=== PATIENT | male | born 1990 | race African-American/Black ===

== ENCOUNTER 2021-05-18 16:39 | Emergency (ER) | payer MEDICARE, OTHER ==
[~2021-05-18] VITALS: Ht 177.8 cm; Wt 133.8 kg
[2021-05-18 17:38] LABS: HEMATOCRIT 46.1 % (36.7-47.1); MEAN CORPUSCULAR HEMOGLOBIN 29.6 uug (23.8-33.4); MEAN CORPUSCULAR VOLUME 87.4 fL (73.0-96.2); PLATELET COUNT (AUTO) 205 K/uL (152-348)
[2021-05-18 17:49] LABS: CARBON DIOXIDE 26 mmol/L (21-32); CHLORIDE 101 mmol/L (98-107); CREATININE 1.3 mg/dL (0.6-1.3); GLUCOSE 82 mg/dL (74-106); POTASSIUM 3.7 mmol/L (3.5-5.1); UREA NITROGEN, BLOOD 13 mg/dL (7-18)
[2021-05-18 17:54] LABS: ACETAMINOPHEN < 2.0 ug/mL (10-30); ALANINE AMINOTRANSFERASE 49 U/L (16-63); ALKALINE PHOSPHATASE 69 U/L (50-136); ASPARTATE AMINOTRANSFERASE 23 U/L (15-37); BILIRUBIN,DIRECT 0.2 mg/dL (0.0-0.2); BILIRUBIN,TOTAL 1.1 mg/dL (0.2-1.0); ETHANOL < 3 MG/DL (0-0); TOTAL PROTEIN, SERUM 7.3 g/dL (6.4-8.2)
[2021-05-18] MEDS ORDERED: OLANZAPINE 5 MG TABLET PO ONE (18:15)
[2021-05-18] MEDS ORDERED: OLANZAPINE 5 MG TABLET ONE (18:26)
--- NOTE | 2021-05-18 18:42 | NUR ---
Pt states he's having visual and auditory hallucinations, denies SI and HI. Pt denies CP, SOB, Dizziness, n/v, no physical complaints, no distress noted.
[2021-05-18 19:19] LABS: *BLOOD, URINE NEGATIVE (NEGATIVE); *CLARITY,URINE CLEAR (CLEAR); *COLOR,URINE YELLOW (YELLOW); *KETONES,URINE 4+ (NEGATIVE); *UROBILINOGEN,URINE 0.2 E.U./dl (NORMAL); LEUKOCYTE ESTERASE ,URINE NEGATIVE (NEGATIVE); NITRITE, URINE NEGATIVE (NEGATIVE); UGLUCOSE NEGATIVE (NEGATIVE)
--- NOTE | 2021-05-18 19:22 | NUR ---
Assumed care of patient from day shift nurse Jorge. Patient AAOx4. Denies any SI. Denies any auditory or visual halucintaion at this time. Appears calm and comfortable.
[2021-05-18 19:25] LABS: *BILIRUBIN,URIN 1+ (NEGATIVE)
[2021-05-18 19:28] LABS: BACTERIA,URINE NONE SEEN /HPF (NONE SEEN); MUCUS,URINE MODERATE /LPF (0-FEW); RBC,URINE 0-3 /HPF (0-3); SQUAMOUS EPITHELIAL CELL,UR FEW /HPF (NONE SEEN); URINE AMORPHOUS URATE FEW /HPF
[2021-05-18 19:35] LABS: *AMPHETAMINE, URINE NEGATIVE (NEGATIVE); *CANNABINOID, URINE NEGATIVE (NEGATIVE); *COCCAINE, URINE NEGATIVE (NEGATIVE); *OPIATE, URINE NEGATIVE (NEGATIVE); *PHENCYCLIDINE SCREEN,URINE NEGATIVE (NEGATIVE)
--- NOTE | 2021-05-18 19:50 | NUR ---
Telephone call to Crisis team/Cathryn to evaluate patient.
--- NOTE | 2021-05-18 20:32 | NUR ---
Crisis team/Pilyy at bedside for eval.
[2021-05-18 21:03] VITALS: BP 120/82
--- NOTE | 2021-05-18 21:03 | NUR ---
Patient discharged to home in stable condition. Written and verbal after care instructions given. Patient verbalizes understanding of instructions. Stressed follow up or return to ER for worsening s/s. All belongings with patient.
== END 2021-05-18 20:58 | disposition home or self-care (01) ==
LOC: ER 16:48
DX: R44.1 Visual hallucinations (principal); R44.0 Auditory hallucinations; Z20.822 Contact with and (suspected) exposure to COVID-19
CPT/HCPCS: 36415; 85025; 87086; A4663; G0480

== ENCOUNTER 2021-06-19 18:56 | Emergency (ER) | payer MEDICARE, OTHER ==
[~2021-06-19] VITALS: Ht 177.8 cm; Wt 133.8 kg
--- NOTE | 2021-06-19 19:19 | NUR ---
Pt brought back to ED2B at 1915 by sales stock associate Adrian. At pt bedside to introduce myself and assess pt condition. Pt AAOx4 with good color, temp and appearance, well nurished and well groomed individual. CC of auditory hallucination with past hx of same issue last month in may. Denies SI or desire to harm self/others. States he simply ran out of his meds. No other health issue. VSS, PE WNL. Lungs clear, oxygenating and perfusing well. denies any pain, nausea or discomfort. No s/sx of distress present. Resting comfortably on gurney awaiting EDMD for eval.
[2021-06-19] MEDS ORDERED: OLANZAPINE 5 MG TABLET PO ONE (19:45)
[2021-06-19 19:57] LABS: HEMATOCRIT 48.4 % (36.7-47.1); MEAN CORPUSCULAR HEMOGLOBIN 30.2 uug (23.8-33.4); MEAN CORPUSCULAR VOLUME 88.4 fL (73.0-96.2); PLATELET COUNT (AUTO) 208 K/uL (152-348)
[2021-06-19 20:01] LABS: CARBON DIOXIDE 30 mmol/L (21-32); CHLORIDE 101 mmol/L (98-107); CREATININE 1.2 mg/dL (0.6-1.3); GLUCOSE 109 mg/dL (74-106); POTASSIUM 4.2 mmol/L (3.5-5.1); UREA NITROGEN, BLOOD 11 mg/dL (7-18)
[2021-06-19 20:03] LABS: *BILIRUBIN,URIN NEGATIVE (NEGATIVE); *BLOOD, URINE NEGATIVE (NEGATIVE); *CLARITY,URINE CLEAR (CLEAR); *COLOR,URINE YELLOW (YELLOW); *KETONES,URINE NEGATIVE (NEGATIVE); *UROBILINOGEN,URINE 0.2 E.U./dl (NORMAL); LEUKOCYTE ESTERASE ,URINE NEGATIVE (NEGATIVE); NITRITE, URINE NEGATIVE (NEGATIVE); PH,URINE 6.5 (5.0-8.0); UGLUCOSE NEGATIVE (NEGATIVE)
[2021-06-19] MEDS ORDERED: OLANZAPINE 5 MG TABLET ONE (20:05)
[2021-06-19 20:06] LABS: ETHANOL < 3 MG/DL (0-0)
[2021-06-19 20:07] LABS: ACETAMINOPHEN < 2.0 ug/mL (10-30); ALANINE AMINOTRANSFERASE 50 U/L (16-63); ALKALINE PHOSPHATASE 88 U/L (50-136); ASPARTATE AMINOTRANSFERASE 20 U/L (15-37); BILIRUBIN,DIRECT 0.1 mg/dL (0.0-0.2); BILIRUBIN,TOTAL 0.7 mg/dL (0.2-1.0); TOTAL PROTEIN, SERUM 7.9 g/dL (6.4-8.2)
[2021-06-19 20:12] LABS: *AMPHETAMINE, URINE NEGATIVE (NEGATIVE); *CANNABINOID, URINE NEGATIVE (NEGATIVE); *COCCAINE, URINE NEGATIVE (NEGATIVE); *OPIATE, URINE NEGATIVE (NEGATIVE); *PHENCYCLIDINE SCREEN,URINE NEGATIVE (NEGATIVE)
--- NOTE | 2021-06-20 00:35 | NUR ---
Art from [facility] intake called back with transfer info. Patient will be going to [facility], Accepting MD is Dr Kevin. Call for report is . Per Art [facility] is unable to accept patient until after 1100 AM this afternoon due to staffing issue.
[2021-06-20] MEDS ORDERED: OLAN5TAB3 PO (01:51)
--- NOTE | 2021-06-20 02:06 | NUR ---
Called [facility] ambulance for schedule pick at 1030 am, for patient to be transfered at [facility].
--- NOTE | 2021-06-20 05:00 | NUR ---
Pt is sleeping soundly with audible snoring. VSS, PE WNL. LUngs clear, oxygenating and perfusing well. denies any pain or nausea. No s/sx of distress present.
--- NOTE | 2021-06-20 08:20 | NUR ---
Pt DCed home per pt request. Pt states that he feels much better and that there is no need to be admitted to a facility, since he has an appt with his Psych MD this saturday to have his meds dialed in better. Pt states that he will just go see his Psych MD at his office. Pt given DC instructions and prescribtion drug info. Pt confirmed understanding of aftercare instructions. Pt is otherwise completely healthy with no other health issues. no s/sx of distress present. VSS, PE WNL
[2021-06-20 08:36] VITALS: BP 126/83
== END 2021-06-20 08:20 | disposition home or self-care (01) ==
LOC: ER 18:58
DX: F29 Unspecified psychosis not due to a substance or known physiological condition (principal); R03.0 Elevated blood-pressure reading, without diagnosis of hypertension; Z20.822 Contact with and (suspected) exposure to COVID-19; Z53.29 Procedure and treatment not carried out because of patient's decision for other reasons
CPT/HCPCS: 36415; 85025; A4663; G0480

== ENCOUNTER 2021-07-26 14:10 | Emergency (ER) | payer MEDICARE, OTHER ==
[~2021-07-26] VITALS: Ht 177.8 cm; Wt 127.0 kg
[~2021-07-26 14:10] MED LIST: OLAN5TAB3 PO
[2021-07-26] MEDS ORDERED: PALI234D IM (14:22)
[2021-07-26] MEDS ORDERED: OLANZAPINE 5 MG TABLET PO STA (14:25)
[2021-07-26] MEDS ORDERED: OLANZAPINE 5 MG TABLET ONE (15:02)
[2021-07-26 15:07] LABS: HEMATOCRIT 48.3 % (36.7-47.1); MEAN CORPUSCULAR HEMOGLOBIN 30.2 uug (23.8-33.4); MEAN CORPUSCULAR VOLUME 87.4 fL (73.0-96.2); PLATELET COUNT (AUTO) 198 K/uL (152-348)
[2021-07-26 15:16] LABS: CARBON DIOXIDE 28 mmol/L (21-32); CHLORIDE 102 mmol/L (98-107); CREATININE 1.4 mg/dL (0.6-1.3); GLUCOSE 97 mg/dL (74-106); POTASSIUM 4.2 mmol/L (3.5-5.1); UREA NITROGEN, BLOOD 10 mg/dL (7-18)
[2021-07-26 15:21] LABS: ETHANOL < 3 MG/DL (0-0)
[2021-07-26 15:25] LABS: *BILIRUBIN,URIN 1+ (NEGATIVE); *CLARITY,URINE CLEAR (CLEAR); *COLOR,URINE YELLOW (YELLOW); *KETONES,URINE 3+ (NEGATIVE); *UROBILINOGEN,URINE 0.2 E.U./dl (NORMAL); LEUKOCYTE ESTERASE ,URINE NEGATIVE (NEGATIVE); NITRITE, URINE NEGATIVE (NEGATIVE); UGLUCOSE NEGATIVE (NEGATIVE)
[2021-07-26 15:29] LABS: *BLOOD, URINE TRACE (NEGATIVE)
[2021-07-26 15:30] LABS: BACTERIA,URINE NONE SEEN /HPF (NONE SEEN); RBC,URINE 0-3 /HPF (0-3); WBC,URINE 0-3 /HPF (0-3)
[2021-07-26 15:33] LABS: ALANINE AMINOTRANSFERASE 46 U/L (16-63); ALKALINE PHOSPHATASE 78 U/L (50-136); ASPARTATE AMINOTRANSFERASE 19 U/L (15-37); BILIRUBIN,DIRECT 0.2 mg/dL (0.0-0.2); BILIRUBIN,TOTAL 0.9 mg/dL (0.2-1.0); TOTAL PROTEIN, SERUM 7.7 g/dL (6.4-8.2)
--- NOTE | 2021-07-26 15:38 | NUR ---
Clinical Social Work Note GREYSON met with patient to discuss voluntary placement at [facility]. Patient is a 30 year old male who is alert and oriented x4. Patient presents with a depressed mood and flat affect. Patient was able to express to SW that he came to the ED because he was having derogatory auditory hallucinations. Patient denied voices telling him to hurt himself or others. Patient denied visual hallucinations. Patient denied suicidal or homicidal ideation. Patient stated that he would like to voluntary go to [facility] to continue treatment. GREYSON informed MIREILLE Cisneros who stated that patients clinicals were not ready. Blayne stated that as soon as patients clinicals were available he would fax ([phone]) them over to Luis at [facility].
[2021-07-26 15:39] LABS: ACETAMINOPHEN < 2.0 ug/mL (10-30)
[2021-07-26 15:41] LABS: *AMPHETAMINE, URINE NEGATIVE (NEGATIVE); *CANNABINOID, URINE NEGATIVE (NEGATIVE); *COCCAINE, URINE NEGATIVE (NEGATIVE); *OPIATE, URINE NEGATIVE (NEGATIVE); *PHENCYCLIDINE SCREEN,URINE NEGATIVE (NEGATIVE)
--- NOTE | 2021-07-26 16:20 | NUR ---
Patient discharged to home in stable condition. Written and verbal after care instructions given. Patient verbalizes understanding of instructions. Stressed follow up or return to ER for worsening s/s.
[2021-07-26] MEDS ORDERED: OLAN15TA3 PO (16:24)
[2021-07-26 16:47] VITALS: BP 138/82
== END 2021-07-26 16:25 | disposition home or self-care (01) ==
LOC: ER 14:10
DX: F20.9 Schizophrenia, unspecified (principal); E66.01 Morbid (severe) obesity due to excess calories; Z68.41 Body mass index [BMI] 40.0-44.9, adult; R82.4 Acetonuria
CPT/HCPCS: 36415; 85025; A4663; G0480

== ENCOUNTER 2021-08-07 14:05 | Emergency (ER) | payer MEDICARE, OTHER ==
[~2021-08-07] VITALS: Ht 177.8 cm; Wt 121.6 kg
[~2021-08-07 14:05] MED LIST changes: +OLAN15TA3 PO; +PALI234D IM
[2021-08-07] MEDS ORDERED: OLAN5TAB3 PO (15:15)
--- NOTE | 2021-08-07 15:24 | NUR ---
Patient discharged to home in stable condition. Written and verbal after care instructions given. Patient verbalizes understanding of instructions. Stressed follow up or return to ER for worsening s/s.PT WALKS IN STEADY GAIT.
== END 2021-08-07 15:25 | disposition home or self-care (01) ==
LOC: ER 14:05
DX: F29 Unspecified psychosis not due to a substance or known physiological condition (principal); Z79.899 Other long term (current) drug therapy; R03.0 Elevated blood-pressure reading, without diagnosis of hypertension
CPT/HCPCS: A4663

== ENCOUNTER 2021-08-11 16:45 | Emergency (ER) | payer MEDICARE, OTHER ==
[~2021-08-11] VITALS: Ht 177.8 cm; Wt 120.2 kg
[2021-08-11] MEDS ORDERED: OLANZAPINE 5 MG TABLET PO ONE (17:45)
[2021-08-11] MEDS ORDERED: OLANZAPINE 5 MG TABLET ONE (18:07)
[2021-08-11] MEDS ORDERED: OLAN10TA3 PO (18:29)
== END 2021-08-11 18:39 | disposition home or self-care (01) ==
LOC: ER 16:45
DX: R44.0 Auditory hallucinations (principal)
CPT/HCPCS: A4663

== ENCOUNTER 2021-08-16 14:45 | Emergency (ER) | payer MEDICARE, OTHER ==
[~2021-08-16] VITALS: Ht 177.8 cm; Wt 122.5 kg
[~2021-08-16 14:45] MED LIST changes: +OLAN10TA3 PO
[2021-08-16] MEDS: diphenhydrAMINE 50 MG CAPSULE PO ONE (15:09)
[2021-08-16] MEDS ORDERED: diphenhydrAMINE 50 MG CAPSULE ONE (15:16)
--- NOTE | 2021-08-16 15:43 | NUR ---
PATIENT WAS SEEN BY MD. MED GIVEN ORDERED. PATIENT TOLD DR ALFONSO THAT HE WANTS TO BE ADMITTED FOR PSYCHIATRIC ISSUES AND "HEARING VOICES"
[2021-08-16 15:58] LABS: *BILIRUBIN,URIN NEGATIVE (NEGATIVE); *BLOOD, URINE NEGATIVE (NEGATIVE); *CLARITY,URINE CLEAR (CLEAR); *COLOR,URINE YELLOW (YELLOW); *KETONES,URINE NEGATIVE (NEGATIVE); *UROBILINOGEN,URINE 0.2 E.U./dl (NORMAL); LEUKOCYTE ESTERASE ,URINE NEGATIVE (NEGATIVE); NITRITE, URINE NEGATIVE (NEGATIVE); UGLUCOSE NEGATIVE (NEGATIVE)
[2021-08-16 16:09] LABS: *AMPHETAMINE, URINE NEGATIVE (NEGATIVE); *CANNABINOID, URINE NEGATIVE (NEGATIVE); *COCCAINE, URINE NEGATIVE (NEGATIVE); *OPIATE, URINE NEGATIVE (NEGATIVE); *PHENCYCLIDINE SCREEN,URINE NEGATIVE (NEGATIVE)
[2021-08-16 16:57] LABS: HEMATOCRIT 47.1 % (36.7-47.1); MEAN CORPUSCULAR HEMOGLOBIN 29.9 uug (23.8-33.4); MEAN CORPUSCULAR VOLUME 87.6 fL (73.0-96.2); PLATELET COUNT (AUTO) 198 K/uL (152-348)
[2021-08-16 17:05] LABS: CARBON DIOXIDE 31 mmol/L (21-32); CHLORIDE 100 mmol/L (98-107); CREATININE 1.3 mg/dL (0.6-1.3); GLUCOSE 136 mg/dL (74-106); POTASSIUM 4.4 mmol/L (3.5-5.1); UREA NITROGEN, BLOOD 7 mg/dL (7-18)
[2021-08-16 17:10] LABS: ALANINE AMINOTRANSFERASE 49 U/L (16-63); ALKALINE PHOSPHATASE 78 U/L (50-136); ASPARTATE AMINOTRANSFERASE 19 U/L (15-37); BILIRUBIN,DIRECT 0.1 mg/dL (0.0-0.2); BILIRUBIN,TOTAL 0.7 mg/dL (0.2-1.0); TOTAL PROTEIN, SERUM 7.6 g/dL (6.4-8.2)
--- NOTE | 2021-08-16 17:11 | NUR ---
LEFT A MESSAGE FOR WILNER FROM CRISIS TEAM FOR EVAL/CARE PLACEMENT. PATIENT ATE DINNER AND DRANK JUICE.
[2021-08-16 17:12] LABS: ACETAMINOPHEN < 2.0 ug/mL (10-30); ETHANOL < 3 MG/DL (0-0)
--- NOTE | 2021-08-16 17:28 | NUR ---
I spoke to Katelynn and she will eval patient when she arrives
--- NOTE | 2021-08-16 19:00 | NUR ---
Katelynn from crisis is here for eval
--- NOTE | 2021-08-16 20:20 | NUR ---
Patient accepted to [facility]. Phone# for report is [phone]. ext [phone]. going to Unit Adult 1. Accepting MD is Dr. Rossi. [facility] Ambulance transport set up for pickup in 2 hrs.
--- NOTE | 2021-08-16 21:30 | NUR ---
[facility] here to transport patient to [facility]. Attempting to give report to facility but no answer.
--- NOTE | 2021-08-16 21:48 | NUR ---
Report given to Chanel @ [facility]
--- NOTE | 2021-08-16 21:49 | NUR ---
Patient transferred to [facility] for voluntary admission. Vitals are stable. Appears in no distress.
== END 2021-08-16 21:49 ==
LOC: ER 14:45
DX: F20.9 Schizophrenia, unspecified (principal); Z81.8 Family history of other mental and behavioral disorders; Z20.822 Contact with and (suspected) exposure to COVID-19; Z79.899 Other long term (current) drug therapy
CPT/HCPCS: 36415; 85025; A4663; G0480; Q0163

== ENCOUNTER 2021-09-06 22:43 | Emergency (ER) | payer MEDICARE, OTHER ==
[~2021-09-06] VITALS: Ht 177.8 cm; Wt 125.2 kg
[2021-09-07 00:04] LABS: *BLOOD, URINE NEGATIVE (NEGATIVE); *CLARITY,URINE CLEAR (CLEAR); *COLOR,URINE YELLOW (YELLOW); *KETONES,URINE 3+ (NEGATIVE); *UROBILINOGEN,URINE 0.2 E.U./dl (NORMAL); LEUKOCYTE ESTERASE ,URINE NEGATIVE (NEGATIVE); NITRITE, URINE NEGATIVE (NEGATIVE); UGLUCOSE NEGATIVE (NEGATIVE)
[2021-09-07 00:06] LABS: *BILIRUBIN,URIN 1+ (NEGATIVE)
[2021-09-07 00:22] LABS: *AMPHETAMINE, URINE NEGATIVE (NEGATIVE); *CANNABINOID, URINE NEGATIVE (NEGATIVE); *COCCAINE, URINE NEGATIVE (NEGATIVE); *OPIATE, URINE NEGATIVE (NEGATIVE); *PHENCYCLIDINE SCREEN,URINE NEGATIVE (NEGATIVE)
--- NOTE | 2021-09-07 02:05 | NUR ---
Patient placed in 4a.
[2021-09-07] MEDS ORDERED: OLANZAPINE 10 MG VIAL IM ONE ×2 (03:15→03:18)
[2021-09-07 07:01] LABS: HEMATOCRIT 44.7 % (36.7-47.1); MEAN CORPUSCULAR HEMOGLOBIN 30.1 uug (23.8-33.4); PLATELET COUNT (AUTO) 222 K/uL (152-348)
[2021-09-07 07:13] LABS: CARBON DIOXIDE 33 mmol/L (21-32); CHLORIDE 100 mmol/L (98-107); CREATININE 1.4 mg/dL (0.6-1.3); GLUCOSE 94 mg/dL (74-106); POTASSIUM 3.9 mmol/L (3.5-5.1); UREA NITROGEN, BLOOD 11 mg/dL (7-18)
[2021-09-07 07:18] LABS: ETHANOL < 3 MG/DL (0-0)
[2021-09-07 07:20] LABS: ACETAMINOPHEN < 2.0 ug/mL (10-30); ALANINE AMINOTRANSFERASE 34 U/L (16-63); ALKALINE PHOSPHATASE 69 U/L (50-136); ASPARTATE AMINOTRANSFERASE 13 U/L (15-37); BILIRUBIN,DIRECT 0.2 mg/dL (0.0-0.2); CREATINE KINASE, TOTAL 299 U/L (39-308); TOTAL PROTEIN, SERUM 6.8 g/dL (6.4-8.2)
--- NOTE | 2021-09-07 08:30 | NUR ---
pt finished break fast tray with good apetite
[2021-09-07] MEDS ORDERED: OLAN10TA3 PO (10:26)
--- NOTE | 2021-09-07 10:39 | NUR ---
Patient discharged to home in stable condition. Written and verbal after care instructions given. Patient verbalizes understanding of instructions. Stressed follow up or return to ER for worsening s/s.pt walks in steady gait. pt says feels better and will go to his own residence.
[2021-09-07 10:41] VITALS: BP 139/88
== END 2021-09-07 10:42 | disposition home or self-care (01) ==
LOC: ER 22:46
DX: F20.9 Schizophrenia, unspecified (principal); Z91.14 Patient's other noncompliance with medication regimen
CPT/HCPCS: 36415; 85025; G0480; J2358

== ENCOUNTER 2021-11-06 20:48 | Emergency (ER) | payer MEDICARE, OTHER ==
[~2021-11-06] VITALS: Ht 177.8 cm; Wt 117.9 kg
--- NOTE | 2021-11-06 22:01 | NUR ---
After being triaged, patient was placed in hallway due to no beds available in the ER.
== END 2021-11-06 22:45 | disposition home or self-care (01) ==
LOC: ER 20:55
DX: F29 Unspecified psychosis not due to a substance or known physiological condition (principal); R03.0 Elevated blood-pressure reading, without diagnosis of hypertension
CPT/HCPCS: A4663

== ENCOUNTER 2022-06-25 20:20 | Emergency (ER) | payer MEDICARE, OTHER, MEDICAID ==
[~2022-06-25] VITALS: Ht 177.8 cm; Wt 117.9 kg
--- NOTE | 2022-06-25 20:45 | NUR ---
Patien walked into ER with a steady gait. NAD noted.
--- NOTE | 2022-06-25 21:00 | NUR ---
Dr. Littlejohn at bedside. MSE in progress.
[2022-06-25] MEDS ORDERED: OLANZAPINE 10 MG VIAL IM ONE ×2 (21:45→21:47)
--- NOTE | 2022-06-25 23:15 | NUR ---
Patient lying in bed. NAD noted.
--- NOTE | 2022-06-26 07:14 | NUR ---
Report given to Prosper KENDRICK.
--- NOTE | 2022-06-26 07:59 | NUR ---
pt was d/c'D to home. d/c instructions given to the pt by dr rushing.
[2022-06-26 08:01] VITALS: BP 128/81
== END 2022-06-26 08:02 | disposition home or self-care (01) ==
LOC: ER 20:24
DX: F23 Brief psychotic disorder (principal)
CPT/HCPCS: A4663; J2358

== ENCOUNTER 2022-07-02 20:16 | Emergency (ER) | payer MEDICARE, OTHER ==
[~2022-07-02 20:16] MED LIST changes: -OLAN10TA3 PO; -OLAN15TA3 PO; -OLAN5TAB3 PO
--- NOTE | 2022-07-03 01:00 | NUR ---
Patient left without being seen
== END 2022-07-03 01:00 | disposition left against medical advice (07) ==
LOC: ER 20:25
DX: Z53.21 Procedure and treatment not carried out due to patient leaving prior to being seen by health care provider (principal)

== ENCOUNTER 2022-07-10 20:12 | Emergency (ER) | payer MEDICARE, OTHER ==
--- NOTE | 2022-07-10 20:30 | NUR ---
Patient was called to be triaged, but was not present in the waiting room or outside of ER.
--- NOTE | 2022-07-10 21:00 | NUR ---
PATIENT WAS CALLED TO BE TRIAGED, BUT WAS NOT PRESENT IN THE WAITING ROOM OR OUTSIDE OF ER.
--- NOTE | 2022-07-10 22:00 | NUR ---
Patient was called to be triaged at this time but was not present in the waiting room or outside of ER. PATIENT WAS NOT TRIAGED OR SEEN BY ERMD.
== END 2022-07-10 22:00 | disposition left against medical advice (07) ==
LOC: ER 20:12
DX: Z53.21 Procedure and treatment not carried out due to patient leaving prior to being seen by health care provider (principal)

== ENCOUNTER 2022-07-16 00:46 | Emergency (ER) | payer MEDICARE, MEDICAID ==
[~2022-07-16] VITALS: Ht 177.8 cm; Wt 117.9 kg
[2022-07-16] MEDS ORDERED: OLANZAPINE 5 MG TABLET PO ONE (02:45)
[2022-07-16 02:53] LABS: MEAN CORPUSCULAR HEMOGLOBIN 30.5 uug (23.8-33.4); MEAN CORPUSCULAR VOLUME 86.9 fL (73.0-96.2); PLATELET COUNT (AUTO) 189 K/uL (152-348)
[2022-07-16 03:01] LABS: CREATININE 1.1 mg/dL (0.6-1.3); MAGNESIUM 1.7 mg/dL (1.8-2.4); POTASSIUM 3.9 mmol/L (3.5-5.1)
[2022-07-16] MEDS ORDERED: OLANZAPINE 5 MG TABLET ONE (03:08)
[2022-07-16] MEDS ORDERED: OLAN5TAB3 PO (03:56)
[2022-07-16] MEDS ORDERED: CYANOCOBALAMIN 1000 MCG/ML VIAL IM ONE (04:00)
[2022-07-16] MEDS ORDERED: CYANOCOBALAMIN 1000 MCG/ML VIAL ONE (04:19)
--- NOTE | 2022-07-16 04:46 | NUR ---
Patient requested a ticket to ride. This was set up and exicuted.
--- NOTE | 2022-07-16 07:10 | NUR ---
Pt was discharged by Reg RN, but not charted.
[2022-07-16 07:45] VITALS: BP 138/93
== END 2022-07-16 07:46 | disposition home or self-care (01) ==
LOC: ER 00:56
DX: R44.0 Auditory hallucinations (principal)
CPT/HCPCS: 99283; 80048; 82607; 83735; 85025; 36415; 96372; J3420; A4663

== ENCOUNTER 2022-07-21 17:30 | Emergency (ER) | payer MEDICARE, MEDICAID ==
[~2022-07-21] VITALS: Ht 177.8 cm; Wt 117.9 kg
[~2022-07-21 17:30] MED LIST changes: +OLAN5TAB3 PO
--- NOTE | 2022-07-21 18:35 | NUR ---
[email or web address], medical screening exam in progress
--- NOTE | 2022-07-21 18:35 | NUR ---
Luiz krueger in ED - 07/21/22 at 1929 by JANET [email or web address], medical screenign exam in progress
[2022-07-21] MEDS ORDERED: OLANZAPINE ZYDIS 5 MG TAB.RAPDIS SL ONE (18:45)
[2022-07-21] MEDS ORDERED: OLANZAPINE 5 MG TABLET ONE (18:45)
--- NOTE | 2022-07-21 18:46 | NUR ---
Patient was initially for discharge to home by Dr Triplett, but patient changed his mind and said, "I don't feel safe." notified.
--- NOTE | 2022-07-21 19:21 | NUR ---
Nursing SBAR given to MIREILLE Hurley
[2022-07-21 20:03] LABS: HEMATOCRIT 45.6 % (36.7-47.1); MEAN CORPUSCULAR HEMOGLOBIN 29.7 uug (23.8-33.4); MEAN CORPUSCULAR VOLUME 87.7 fL (73.0-96.2); PLATELET COUNT (AUTO) 205 K/uL (152-348)
[2022-07-21 20:16] LABS: ALANINE AMINOTRANSFERASE 71 U/L (16-63); ALKALINE PHOSPHATASE 75 U/L (50-136); ASPARTATE AMINOTRANSFERASE 28 U/L (15-37); BILIRUBIN,DIRECT 0.1 mg/dL (0.0-0.2); BILIRUBIN,TOTAL 0.7 mg/dL (0.2-1.0); CARBON DIOXIDE 27 mmol/L (21-32); CHLORIDE 100 mmol/L (98-107); CREATININE 1.1 mg/dL (0.6-1.3); GLUCOSE 117 mg/dL (74-106); POTASSIUM 4.2 mmol/L (3.5-5.1); TOTAL PROTEIN, SERUM 7.6 g/dL (6.4-8.2); UREA NITROGEN, BLOOD 11 mg/dL (7-18)
[2022-07-21 20:23] LABS: ACETAMINOPHEN < 2.0 ug/mL (10-30)
[2022-07-21 20:27] LABS: ETHANOL < 3 MG/DL (0-0)
[2022-07-21 22:36] LABS: *BILIRUBIN,URIN NEGATIVE (NEGATIVE); *BLOOD, URINE NEGATIVE (NEGATIVE); *CLARITY,URINE CLEAR (CLEAR); *COLOR,URINE YELLOW (YELLOW); *KETONES,URINE NEGATIVE (NEGATIVE); *UROBILINOGEN,URINE 0.2 E.U./dl (NORMAL); LEUKOCYTE ESTERASE ,URINE NEGATIVE (NEGATIVE); NITRITE, URINE NEGATIVE (NEGATIVE); UGLUCOSE NEGATIVE (NEGATIVE)
[2022-07-21 22:50] LABS: *AMPHETAMINE, URINE NEGATIVE (NEGATIVE); *CANNABINOID, URINE NEGATIVE (NEGATIVE); *COCCAINE, URINE NEGATIVE (NEGATIVE); *OPIATE, URINE NEGATIVE (NEGATIVE); *PHENCYCLIDINE SCREEN,URINE NEGATIVE (NEGATIVE)
[2022-07-22 00:04] VITALS: BP 129/84
== END 2022-07-22 00:10 | disposition home or self-care (01) ==
LOC: ER 17:33
DX: F29 Unspecified psychosis not due to a substance or known physiological condition (principal); Z20.822 Contact with and (suspected) exposure to COVID-19
CPT/HCPCS: 36415; 85025; G0480